=== PATIENT | female | born 1990 | race African-American/Black ===

== ENCOUNTER 2017-05-25 10:44 | Emergency (ER) | payer SELFPAY ==
[~2017-05-25] VITALS: Ht 157.5 cm; Wt 72.1 kg
--- NOTE | 2017-05-25 12:03 | ED Abdominal Pain ---
General Chief Complaint: Abdominal/GI Problems Stated Complaint: LIGHT HEADED/ABD PAIN/VOMITING Nursing Triage Note: PT CO OF ABD PAIN, NAUSEA, VOMITED ONCE TODAY, SOME DIZZINES, FREQUENCY AND URGENCY OF URINATION Sepsis Screen: No Definite Risk Source of Information: Patient Exam Limitations: No Limitations History of Present Illness Time Seen By Provider: 12:02 Initial Comments 27-year-old female patient presents to the emergency department with complaints of pelvic pain as well as nausea and emesis 1 today. Does complain of frequency and urgency of urination. Has mild dizziness. Denies fever, diarrhea , vaginal bleeding, vaginal discharge. Timing/Duration: 4-6 Hours, Constant Severity/Quality: Aching, Cramping Location: Suprapubic Radiation: No Radiation Activities at Onset: None Modifying Factors: Worsens With Palpation Allergies and Home Medications Allergies Coded Allergies: No Known Drug Allergies (Unverified , 05/25/17) Home Medications Ciprofloxacin HCl 500 Mg Tablet, 500 MG PO BID, #6 Ref 0 Prescribed by: MARK ANTHONY GOTTI on 05/25/17 1428 Ondansetron 8 Mg Tab.rapdis, 8 MG PO Q6H PRN for NAUSEA/VOMITING-1ST LINE, #10 Ref 0 Prescribed by: MARK ANTHONY GOTTI on 05/25/17 1428 Phenazopyridine HCl 100 Mg Tablet, 100 MG PO Q8H PRN for SPASMS, #14 Ref 0 Prescribed by: MARK ANTHONY GOTTI on 05/25/17 1428 Review of Systems Constitutional: No chills, dizziness, No fever, No malaise Respiratory: No Symptoms Reported Cardiovascular: No Symptoms Reported Gastrointestinal: See HPI, Denies Abdomen Distended, Abdominal Pain, Denies Constipated, Denies Diarrhea, Nausea, Vomiting Genitourinary: See HPI, Denies Burning, Denies Discharge, Denies Frequency, Denies Flank Pain, Denies Hematuria, Pain Musculoskeletal: No back pain Skin: no symptoms reported Psychiatric/Neurological: No Symptoms Reported All Other Systems Reviewed Negative Unless Noted: Yes (Negative excepted noted.) Past Ddispnr-Ueelxo-Kbrate Hx Patient Social History Alcohol Use: Denies Use Recreational Drug Use: No Smoking Status: Never a Smoker Recent Foreign Travel: No Contact w/Someone Who Travel: No Recent Infectious Disease Expo: No Recent Hopitalizations: No Physical Abuse: No Sexual Abuse: No Surgeries History of Surgeries: Yes Surgeries: Section Respiratory History of Respiratory Disorde: No Cardiovascular History of Cardiac Disorders: No Neurological History of Neurological Disord: No Reproductive System : No Last Menstrual Period: May 03, 2017 Hx : 2 Hx Para: 1 Hx Total # of Abortions (Spona: 1 Female Reproductive Disorders: Denies Genitourinary History of Genitourinary Disor: No Gastrointestinal History of Gastrointestinal Di: No Musculoskeletal History of Musculoskeletal Dis: No Endocrine History of Endocrine Disorders: No Psychosocial Suicide Risk Score: 0 Reviewed Nursing Assessment Reviewed/Agree w Nursing PMH: Yes Family Medical History Significant Family History: No Pertinent Family Hx Physical Exam Vital Signs VS - Last 72 Hours, by Label 05/25/17 11:00 Temp 97.8 Pulse 81 Resp 18 B/P (MAP) 119/65 Pulse Ox 99 Capillary Refill : Less Than 3 Seconds General Appearance: WD/WN, no apparent distress HEENT: PERRL/EOMI, pharynx normal Neck: supple, normal inspection Respiratory: lungs clear, normal breath sounds, no respiratory distress, no accessory muscle use Cardiovascular: normal peripheral pulses, regular rate, rhythm, no murmur Gastrointestinal: normal bowel sounds, soft, no organomegaly, No distended, No guarding, No rebound, tenderness (bilat pelvic and suprapubic tenderness) Extremities: no pedal edema, normal capillary refill Back: normal inspection, no CVA tenderness Pelvic: other (patient refused (states she had a pelvic/pap last month in [place])) Neurologic/Psychiatric: alert, normal mood/affect, oriented x 3 Skin: normal color, warm/dry Progress/Results/Core Measures Results/Orders Lab Results Laboratory Tests Test 05/25/17 11:05 05/25/17 12:35 Range/Units Urine Color YELLOW Urine Clarity CLEAR Urine pH 5 5-9 Urine Specific [place] 1.015 L 1.016-1.022 Urine Protein NEGATIVE NEGATIVE Urine Glucose (UA) NEGATIVE NEGATIVE Urine Ketones NEGATIVE NEGATIVE Urine Nitrite NEGATIVE NEGATIVE Urine Bilirubin NEGATIVE NEGATIVE Urine Urobilinogen NORMAL NORMAL MG/DL Urine Leukocyte Esterase 1+ H NEGATIVE Urine RBC (Auto) 1+ H NEGATIVE Urine RBC NONE /HPF Urine WBC 0-2 /HPF Urine Squamous Epithelial Cells 10-25 H /HPF Urine Crystals NONE /LPF Urine Bacteria TRACE /HPF Urine Casts NONE /LPF Urine Mucus NEGATIVE /LPF Urine Culture Indicated NO White Blood Count 5.6 4.3-11.0 10^3/uL Red Blood Count 4.95 4.35-5.85 10^6/uL Hemoglobin 14.1 11.5-16.0 G/DL Hematocrit 42 35-52 % Mean Corpuscular Volume 84 80-99 FL Mean Corpuscular Hemoglobin 29 25-34 PG Mean Corpuscular Hemoglobin Concent 34 32-36 G/DL Red Cell Distribution Width 13.2 10.0-14.5 % Platelet Count 249 130-400 10^3/uL Mean Platelet Volume 11.5 H 7.4-10.4 FL Neutrophils (%) (Auto) 46 42-75 % Lymphocytes (%) (Auto) 43 12-44 % Monocytes (%) (Auto) 9 0-12 % Eosinophils (%) (Auto) 1 0-10 % Basophils (%) (Auto) 0 0-10 % Neutrophils # (Auto) 2.6 1.8-7.8 X 10^3 Lymphocytes # (Auto) 2.4 1.0-4.0 X 10^3 Monocytes # (Auto) 0.5 0.0-1.0 X 10^3 Eosinophils # (Auto) 0.1 0.0-0.3 10^3/uL Basophils # (Auto) 0.0 0.0-0.1 10^3/uL Sodium Level 139 135-145 MMOL/L Potassium Level 4.1 3.6-5.0 MMOL/L Chloride Level 107 98-107 MMOL/L Carbon Dioxide Level 23 21-32 MMOL/L Anion Gap 9 5-14 MMOL/L Blood Urea Nitrogen 9 7-18 MG/DL Creatinine 0.80 0.60-1.30 MG/DL Estimat Glomerular Filtration Rate > 60 BUN/Creatinine Ratio 11 Glucose Level 88 70-105 MG/DL Calcium Level 9.5 8.5-10.1 MG/DL Total Bilirubin 0.5 0.1-1.0 MG/DL Aspartate Amino Transf (AST/SGOT) 18 5-34 U/L Alanine Aminotransferase (ALT/SGPT) 17 0-55 U/L Alkaline Phosphatase 54 40-136 U/L Total Protein 7.1 6.4-8.2 GM/DL Albumin 3.9 3.2-4.5 GM/DL MARK ANTHONY Judd Cbc With Automated Diff (05/25/17 12:12) Comprehensive Metabolic Panel (05/25/17 12:12) Ua Culture If Indicated (05/25/17 12:12) Saline Lock/Iv-Start (05/25/17 12:12) Ketorolac Injection (Toradol Injection) (05/25/17 12:12) Ns Iv 1000 Ml (Sodium Chloride 0.9%) (05/25/17 12:12) Us Non Ob Pelvis Comp/Transvag (05/25/17 12:12) Medications Given in ED Current Medications Medications Dose Ordered Sig/Olman Route Start Time Stop Time Status Last Admin Dose Admin Sodium Chloride 1,000 ml @ 0 mls/hr Q0M ONCE IV 05/25/17 12:12 05/25/17 12:14 DC 05/25/17 12:24 1,000 MLS/HR Vital Signs/I&O Vital Sign - Last 12Hours 05/25/17 11:00 Temp 97.8 Pulse 81 Resp 18 B/P (MAP) 119/65 Pulse Ox 99 Blood Pressure Mean: 83 Point of Care Testing Urine -Bedside: Negative Diagnostic Imaging Diagonstic Imaging: Ultrasound Plain Films/CT/US/NM/MRI: pelvis Comments INDICATION: Lightheadedness, pain. FINDINGS: The left ovary could not be visualized obscured by overlying shadowing bowel gas. The right ovary appeared normal. There is no identifiable adnexal lesion. There is no fibroid or myometrial mass. The endometrium appeared homogeneous at 1.2 cm thick. No abnormal color Doppler blood flow. No pelvic ascites. No fluid collection. IMPRESSION: Obscuration of the left ovary by overlying bowel gas. No pathological finding demonstrated. Dictated on workstation # [id number] Reviewed: Reviewed by Me (radiology report reviewed by me ) Departure Communication Progress Notes Laboratory and diagnostic findings discussed with the patient. Patient reports improvement in symptoms with Toradol and IV fluids. Plan for discharge to home. Patient instructed to follow-up with the primary care physician of her choice or tender coordinator for recheck and to call for appointment time. Impression Impression: Primary Impression: Pelvic pain Additional Impression: Frequency of urination Disposition: HOME, SELF-CARE Condition: Improved Departure-Patient Inst. Decision time for Depature: 14:14 Referrals: JADA ORTIZ DENNIS G MD NO,LOCAL PHYSICIAN (PCP) Primary Care Physician KWAME MARTINEZ ANGELA C DO Patient Instructions: Acute Pelvic Pain (DC) Add. Discharge Instructions: All discharge instructions reviewed with patient and/or family. Voiced understanding. Medications as instructed. Tylenol Extra Strength over-the- counter as directed for pain. Ibuprofen 800 mg by mouth every 8 hours as needed for pain. Drink plenty of fluids. Follow-up with the tender coordinator or family practitioner of your choice for recheck and possible need for further evaluation. Return to the emergency department for worsened pain, fever, vomiting, vaginal bleeding with greater than 2 pads per hour for greater than 2 hours, vaginal discharge, inability to urinate, or any other concerns. Scripts Ondansetron (Ondansetron Odt) 8 Mg Tab.rapdis 8 MG PO Q6H Y for NAUSEA/VOMITING-1ST LINE, #10 TAB 0 Refills Prov: MARK ANTHONY GOTTI 05/25/17 Phenazopyridine HCl (Pyridium) 100 Mg Tablet 100 MG PO Q8H Y for SPASMS, #14 TAB 0 Refills Prov: MARK ANTHONY GOTTI 05/25/17 Ciprofloxacin HCl (Ciprofloxacin HCl) 500 Mg Tablet 500 MG PO BID, #6 TAB 0 Refills Prov: MARK ANTHONY GOTTI 05/25/17 Work/School Note: Local Medical Staff Listing, Work Release Form Date Seen in the Emergency Department: May 25, 2017 Return to Work: May 26, 2017 Restrictions: No Restrictions MARK ANTHONY GOTTI May 25, 2017 12:02
[2017-05-25] MEDS ORDERED: KETOROLAC 30 MG/ML VIAL IVP STA (12:12)
[2017-05-25] MEDS ORDERED: NS IV 1000 ML 1,000 ML IV ONE (12:12)
[2017-05-25 12:31] LABS: BILIRUBIN,URINE NEGATIVE (NEGATIVE); KETONES,URINE NEGATIVE (NEGATIVE); LEUKOCYTE ESTERASE ,URINE 1+ (NEGATIVE); NITRITE,URINE NEGATIVE (NEGATIVE); PH,URINE 5 (5-9); PROTEIN,URINE NEGATIVE (NEGATIVE); UROBILINOGEN,URINE NORMAL (NORMAL)
[2017-05-25 12:43] LABS: BASOPHILS % (AUTO) 0 % (0-10); EOSINOPHILS # (AUTO) 0.1 10^3/uL (0.0-0.3); EOSINOPHILS % (AUTO) 1 % (0-10); LYMPHOCYTES # (AUTO) 2.4 X 10^3 (1.0-4.0); LYMPHOCYTES % (AUTO) 43 % (12-44); MEAN CORPUSCULAR HEMOGLOBIN 29 PG (25-34); MEAN CORPUSCULAR HGB CONC 34 G/DL (32-36); MEAN CORPUSCULAR VOLUME 84 FL (80-99); MEAN PLATELET VOLUME 11.5 FL (7.4-10.4); MONOCYTES # (AUTO) 0.5 X 10^3 (0.0-1.0); MONOCYTES % (AUTO) 9 % (0-12); NEUTROPHILS # (AUTO) 2.6 X 10^3 (1.8-7.8); NEUTROPHILS % (AUTO) 46 % (42-75); PLATELET COUNT 249 10^3/uL (130-400); RED BLOOD COUNT 4.95 10^6/uL (4.35-5.85); RED CELL DISTRIBUTION WIDTH 13.2 % (10.0-14.5); WHITE BLOOD COUNT 5.6 10^3/uL (4.3-11.0)
[2017-05-25 12:44] LABS: WBC,URINE 0-2 /HPF
[2017-05-25 13:03] LABS: ALANINE AMINOTRANSFERASE 17 U/L (0-55); ALBUMIN 3.9 GM/DL (3.2-4.5); ANION GAP 9 MMOL/L (5-14); ASPARTATE AMINO TRANSFERASE 18 U/L (5-34); BILIRUBIN,TOTAL 0.5 MG/DL (0.1-1.0); BLOOD UREA NITROGEN 9 MG/DL (7-18); BUN/CREATININE RATIO 11; CALCIUM 9.5 MG/DL (8.5-10.1); CARBON DIOXIDE 23 MMOL/L (21-32); CHLORIDE 107 MMOL/L (98-107); GFR ESTIMATED > 60; GLUCOSE 88 MG/DL (70-105); POTASSIUM 4.1 MMOL/L (3.6-5.0); SODIUM 139 MMOL/L (135-145); TOTAL PROTEIN 7.1 GM/DL (6.4-8.2)
--- NOTE | 2017-05-25 13:53 | Diagnostic Imaging Report ---
INDICATION: Lightheadedness, pain. FINDINGS: The left ovary could not be visualized obscured by overlying shadowing bowel gas. The right ovary appeared normal. There is no identifiable adnexal lesion. There is no fibroid or myometrial mass. The endometrium appeared homogeneous at 1.2 cm thick. No abnormal color Doppler blood flow. No pelvic ascites. No fluid collection. IMPRESSION: Obscuration of the left ovary by overlying bowel gas. No pathological finding demonstrated. Dictated by: Dictated on workstation # [id number]
[2017-05-25] MEDS ORDERED: CIPR500T4 PO ×2 (14:16→14:28)
[2017-05-25] MEDS ORDERED: PHEN-639 PO ×2 (14:16→14:28)
[2017-05-25] MEDS ORDERED: ONDA8TAB13 PO (14:28)
[2017-05-25 14:42] VITALS: BP 110/65
== END 2017-05-25 14:42 | disposition home or self-care (01) ==
LOC: ER 10:51
DX: R10.2 Pelvic and perineal pain (principal); R35.0 Frequency of micturition; Z87.59 Personal history of other complications of pregnancy, childbirth and the puerperium
CPT/HCPCS: 36415; 76830; 76856; 80053; 81000; 84703; 85025; 96361; 96374